=== PATIENT | male | born 1995 | race Caucasian/White ===

== ENCOUNTER 2018-08-28 19:57 | Emergency (ER) | payer BC ==
[~2018-08-28] VITALS: Ht 172.7 cm; Wt 104.3 kg
[2018-08-28 20:04] VITALS: BP 137/81
--- NOTE | 2018-08-28 20:05 | NUR ---
PT BIBA TO ED BED 12
--- NOTE | 2018-08-28 20:14 | NUR ---
PT BIBA TO ED FOR EVALUATION OF SOB. PT STATED SOB WITH CHEST PAIN X 30 MINS. SHARP LIKE PAIN. DENIES PMH, DENIES DRUG USE. BL LUNG CLEAR. AAO X4, GCS 15, ABLE TO SPEAK WITH FULL COMPLETE SENTENCES. PUPILS PERRLA 3/3MM. AMBULATORY WITH STDEAY GAIT. RESPIATIONS EVEN AND UNLABORED, BL LUNG CLEAR. SKIN WARM/PINK/DRY, +PMSC. ABDOMEN SOFT, NON DISTENDED, ACTIVE BOWEL SOUND X4. VSS, STATED CP 9/10. DR. MOREL MADE AWARE OF PT STATUS. WILL CONTINUE TO MONITOR
--- NOTE | 2018-08-28 20:40 | NUR ---
DR. MOREL EVALUATING PT AT BEDSIDE
--- NOTE | 2018-08-28 21:49 | NUR ---
Patient discharged with v/s stable. Written and verbal after care instructions given and explained. Patient verbalized understanding. Ambulatory with steady gait. All questions addressed prior to discharge. Advised to follow up with PMD.
[2018-08-28 21:50] VITALS: BP 130/80
== END 2018-08-28 21:49 | disposition home or self-care (01) ==
LOC: MED 19:57
DX: F41.9 Anxiety disorder, unspecified (principal); Z98.890 Other specified postprocedural states
CPT/HCPCS: 93005; 99283